=== PATIENT | female | born 1970 | race Caucasian/White ===

== ENCOUNTER → 2019-06-12 09:58 | Outpatient (BNVA) | payer MEDICAID, SELFPAY | PROVIDERS: Family Provider Nurse Practitioner Family; PCP Nurse Practitioner Family; Visit Provider Family Medicine | DX: M79.672 Pain in left foot (principal) | CPT/HCPCS: 73630 ==

== ENCOUNTER 2019-08-05 08:00 | Day surgery (SDC) | payer MEDICAID, SELFPAY | END 2019-08-05 09:00 | disposition home or self-care (01) | LOC: OR 11-19 10:20 | PROVIDERS: PCP Family Medicine; Visit Provider Surgery | DX: Z01.818 Encounter for other preprocedural examination (principal); M67.472 Ganglion, left ankle and foot ==

== ENCOUNTER 2019-08-17 05:54 | Day surgery (SDC) | payer MEDICAID, SELFPAY ==
[2019-08-17 06:00] VITALS: BP 155/71; PULSE 83; RESP 18; TEMP 36.2; O2SAT 94
[2019-08-17] MEDS: sodium chloride 0.9% 1,000 ML 30 ML IV (06:15)
--- NOTE | 2019-08-17 06:18 | ANES.PREANE2 ---
Pre-Anesthetic Assessment Pre-Anesthetic Assessment: Height/Weight: Height 1.7 m Weight 83.007 kg Temp Pulse Resp BP Pulse Ox 97.2 F L 83 18 155/71 94 08/17/19 06:00 08/17/19 06:00 08/17/19 06:00 08/17/19 06:00 08/17/19 06:00 Preop Diagnosis: Cyst left foot Proposed Procedure: Operation Date: 08/17/19 07:00 Proposed Procedures p Excision of cyst of left foot 06057 M67.472(Left) - Corbin Damon MD Familial anesthetic complications: None Was Beta Krystal taken within 24 hours: N/A Last intake: Intake Last Liquid Date 08/16/19 Last Liquid Time 23:20 Last Solid Date 08/16/19 Last Solid Time 12:00 Social: Social History: Tobacco Packs per day: 1 ppd Exam: Pre-Anes Outpt Exam: alert, oriented x 3, clear to auscultation bilaterally and regular rate & rhythm Additional Exam Findings (including area of procedure): coarse breaths ounds b/l Airway: Cervical ROM: WNL MP: 3 Additional comments: edentulous Pulmonary: Pulmonary: COPD, Cough (chronic) and SOB CV/HEM: CV/HEM: None reported : : None reported Hepatic: Hepatic: None reported GI: GI: None reported Metabolic: Metabolic: None reported Musc/skel: Musc/skel: None reported Neuropsych: Neuropsych: None reported Anesthetic Plan: ASA status: 2 Anesthesia: MAC Risk of > 500 ml blood loss (7ml/kg in children): No Meds/Allergies Current Medications: Current Medications Generic Name Dose Route Start Last Admin Trade Name Freq PRN Reason Stop Dose Admin Sodium Chloride 1,000 mls @ 30 ml s/hr 08/17/19 06:00 08/17/19 06:15 Sodium Chloride 0.9% IV 08/18/19 05:59 30 mls/hr .Q24H ALEJANDRO Administration PFSH Anesthesia PFSH: Medical History COPD (chronic obstructive pulmonary disease) GERD (gastroesophageal reflux disease) Hx of anorexia nervosa Surgical History History of incision and drainage several I&Ds due to abscess per patient Hx of dilation and curettage Family History Mother Diabetes Sister Diabetes Denies family history of Clotting disorder Suicide Cancer Hypertension Stroke Social History Smoking and tobacco status: current every day smoker Alcohol intake: current Alcohol intake frequency: 0-2 Drinks per Day Adopted: No Household members: spouse Housing: Manufactured/Mobile home Marital status: Number of children: 2 Number of grandchildren: 1 Highest education level completed: 10th Grade service: No Current occupational status: disabled Pets and animals: Yes History of recent travel: No Current gender identity: Female Data Anesthesia Cardiac Studies: No Data to Display
--- NOTE | 2019-08-17 06:26 | SUR.PREOP ---
Patient states that she has not had a period in years.
--- NOTE | 2019-08-17 06:53 | W.PM.OPSFHP ---
Same Day Surgery H&P Indication for Procedure/HPI DATE OF PROCEDURE: August 17, 2019 CHIEF COMPLAINT/INDICATIONFOR SURGICAL PROCEDURE: left foot cyst PREOP DIAGNOSIS: Cyst left foot PLANNED PROCEDRUE: Operation Date: 08/17/19 07:00 Proposed Procedures p Excision of cyst of left foot 01237 M67.472(Left) - Corbin Damon MD Medications/Allergies* Home Medications Medication Instructions Recorded Confirmed Type [id number] 250 1 tab PO Q6H PRN 07/15/19 08/17/19 History mg-250 mg-65 mg tablet Allergies/Adverse Reactions Allergy/AdvReac Type Severity Reaction Status Date / Time Penicillins Allergy Unknown Unknown Verified 07/15/19 09:20 propoxyphene [From Darvon] Allergy Unknown ALGY-Rash Verified 07/15/19 09:20 Tetracyclines Allergy Unknown ALGY-Rash Verified 07/15/19 09:20 tramadol [From Ultram] Allergy Unknown ALGY-Rash Verified 07/15/19 09:20 hydrocodone AdvReac Unknown ADR-Gastrointestinal Verified 07/15/19 09:20 Upset Current Medications: Generic Name Dose Route Start Last Admin Trade Name Freq PRN Reason Stop Dose Admin Sodium Chloride 1,000 mls @ 30 mls/hr 08/17/19 06:00 08/17/19 06:15 Sodium Chloride 0.9% IV 08/18/19 05:59 30 mls/hr .Q24H ALEJANDRO Administration Pertinent History/Comorbid Conditions* Medical History (Updated 06/12/19 @ 09:42 by Sandi Morrison MD) COPD (chronic obstructive pulmonary disease) GERD (gastroesophageal reflux disease) Hx of anorexia nervosa Surgical History (Updated 07/15/19 @ 10:06 by Corbin Damon MD) History of incision and drainage several I&Ds due to abscess per patient Hx of dilation and curettage Family History (Updated 06/12/19 @ 09:21 by Idania Wade LPN) Diabetes Mother Sister Denies family history of Clotting disorder Suicide Cancer Hypertension Stroke Social History Smoking and tobacco status: current every day smoker Alcohol intake: current Alcohol intake frequency: 0-2 Drinks per Day Adopted: No Household members: spouse Housing: Manufactured/Mobile home Marital status: Number of children: 2 Number of grandchildren: 1 Highest education level completed: 10th Grade service: No Current occupational status: disabled Pets and animals: Yes History of recent travel: No Current gender identity: Female Pertinent Exam Findings alert, oriented x 3 and regular rate & rhythm Recommendations Surgery/Procedure today Coding Level of Care Code Acute [employer] Librarian for Evelyn Rabago
[2019-08-17] MEDS: clindamycin 600 MG/50 ML PREMIX 100 MG IV (06:54)
[2019-08-17] MEDS: lidocaine 1% INJ 20 mL INTRAVESIC (07:25)
--- NOTE | 2019-08-17 07:35 | P.OP_ITS ---
Operative Report Date of procedure: August 17, 2019 Pre-op Diagnosis: Cyst left foot Post-op diagnosis: same Post-op Diagnosis: 2.5 x 2.5 cm cyst left foot Procedure Done: Excision of subcutaneous mass left foot Specimens removed/disposition: Cyst left foot Surgeon: Corbin Damon Anesthesia: MAC Estimated blood loss (mL): 5 Condition: stable Disposition: PACU Procedure: The patient was taken to the operating room and placed under MAC after IV antibiotic had been administered. The left foot was prepped and draped in a sterile manner. 1% lidocaine with 0.5% Marcaine was infiltrated around the cyst. Using a 15 blade a longitudinal 3 cm incision was made, subcutaneous tissue was divided and the cyst was dissected free from the surrounding subcutaneous tissue and underlying capsule using electrocautery. Wound was irrigated with saline, hemostasis ensured and subcutaneous tissues approximated using interrupted 3-0 Vicryl suture and skin was closed using running subcuti cular 4-0 Monocryl and surgical glue. Pressure dressings were applied. Patient was stable throughout the procedure.
[2019-08-17 07:39] VITALS: BP 137/82; PULSE 70; RESP 16; TEMP 36.6; O2SAT 98
[2019-08-17 07:49] VITALS: BP 126/73; PULSE 66; RESP 16; O2SAT 94
== END 2019-08-17 08:07 | disposition home or self-care (01) ==
PROVIDERS: PCP Family Medicine; Visit Provider Surgery
PROC: (CPT 11423; principal; 2019-08-17 07:00)
DX: L72.8 Other follicular cysts of the skin and subcutaneous tissue (principal); F17.210 Nicotine dependence, cigarettes, uncomplicated; J44.9 Chronic obstructive pulmonary disease, unspecified; K21.9 Gastro-esophageal reflux disease without esophagitis; Z83.3 Family history of diabetes mellitus; Z79.82 Long term (current) use of aspirin
CPT/HCPCS: 11423; 12041; 12345; 88304; J2001; J2250; J2270; J2405; J2704; J3490; J7030

== ENCOUNTER → 2019-10-08 11:22 | Outpatient (BNVA) | payer MEDICAID, SELFPAY | PROVIDERS: PCP Family Medicine; Visit Provider Nurse Practitioner Family | DX: T81.41XA Infection following a procedure, superficial incisional surgical site, initial encounter (principal); J44.9 Chronic obstructive pulmonary disease, unspecified; M79.671 Pain in right foot | CPT/HCPCS: 87070; 87077; 87184; 87186 ==

== ENCOUNTER → 2021-09-18 15:11 | Outpatient (BNVA) | payer MEDICAID, SELFPAY | PROVIDERS: PCP Family Medicine; Visit Provider Nurse Practitioner Family | DX: J44.9 Chronic obstructive pulmonary disease, unspecified (principal); L02.92 Furuncle, unspecified | CPT/HCPCS: 87070; 87077; 87184 ==

== ENCOUNTER → 2023-06-04 10:27 | Outpatient (BNVA) | payer MEDICAID, SELFPAY | PROVIDERS: PCP Family Medicine; Visit Provider Nurse Practitioner Family | DX: M79.89 Other specified soft tissue disorders (principal) | CPT/HCPCS: 80053; 80061; 83880; 84443; 85025 ==

== ENCOUNTER → 2023-06-18 10:57 | Outpatient (BNVA) | payer MEDICAID, SELFPAY | PROVIDERS: PCP Family Medicine; Visit Provider Nurse Practitioner Family | DX: R79.89 Other specified abnormal findings of blood chemistry (principal) | CPT/HCPCS: 84439; 84443; 84481 ==

== ENCOUNTER 2023-07-29 13:47 | Outpatient (CLI) | payer MEDICAID, SELFPAY ==
--- NOTE | 2023-07-29 14:30 | USCV_ITS ---
Roxi Jimenez Age: 53 Gender: F : 1970 Exam Date: 07/29/2023 14:15 Ordering Phys: Lizeth Marin-Janay Technologist: CT Exam Location: [facility] – [place] Indication: syncope BP: 140 / 66 HR: 79 Rhythm: Sinus Technical Quality: Adequate MEASUREMENTS (Male / Female) Normal Values 2D ECHO LV Diastolic Diameter PLAX 3.0 cm 4.2 - 5.9 / 3.9 - 5.3 cm IVS Diastolic Thickness 1.7 cm 0.6 - 1.0 / 0.6 - 0.9 cm IVS Systolic Thickness 2.0 cm LVPW Diastolic Thickness 1.5 cm 0.6 - 1.0 / 0.6 - 0.9 cm LVPW Systolic Thickness 1.9 cm LVOT Diameter 2.0 cm LV Ejection Fraction 2D Teich 50.7 % LV Ejection Fraction MOD 2C 53.8 % LV Ejection Fraction 2C AL 53.9 % LA Diameter 3.2 cm RA Systolic Volume 4C AL 34.6 ml RA Systolic Volume 4C MOD 33.2 ml Aorta at Sinotubular Diameter 2.8 cm DOPPLER AV Peak Velocity 362.0 cm/s MV Peak Velocity 88.0 cm/s MV Area PHT 2.5 cm squared Mitral E to A Ratio 0.8 TR Peak Velocity 233.0 cm/s TR Peak Gradient 21.7 mmHg TV Peak E Velocity 102.0 cm/s Right Atrial Pressure 3.0 mmHg Pulmonary Artery Systolic Pressu 24.7 mmHg FINDINGS Left Ventricle Technically limited quality echocardiogram because of poor ultrasonic windows. Left ventricle is normal size. LV systolic function is normal with EF 55 to 60%. No regional wall motion abnormalities are seen. Grade 1 diastolic dysfunction. Right Ventricle Normal in size and function Right Atrium Normal in size Left Atrium Normal in size Mitral Valve Structurally normal mitral valve. Trace mitral regurgitation. Aortic Valve Not well-visualized. Gradient across aortic valve/LVOT appears to be elevated however contamination with mitral regurgitation doppler signal is likely. Tricuspid Valve Pulmonary artery systolic pressure is normal. Trace tricuspid regurgitation. Pulmonic Valve Not well visualized Pericardium Normal Aorta Normal in size IVC Appears to be normal CONCLUSIONS Technically limited quality echocardiogram because of poor ultrasonic windows. Valves are not well-visualized. LV systolic function is normal. Trace mitral regurgitation. Aortic valve is not well-visualized. Gradient across valve/LVOT appears to be elevated however contamination with mitral regurgitation and Doppler signal is likely. Trace tricuspid regurgitation No comparison studies are available. Yuri Murillo MD (Electronically Signed) Final Date: 04 Aug 2023 14:16 S
== END 2023-07-29 13:48 | disposition home or self-care (01) ==
LOC: RAD 13:48
PROVIDERS: PCP Family Medicine; Visit Provider Nurse Practitioner Family
DX: M79.89 Other specified soft tissue disorders (principal); J44.9 Chronic obstructive pulmonary disease, unspecified; R06.02 Shortness of breath
CPT/HCPCS: 93306

== ENCOUNTER → 2023-08-05 10:48 | Outpatient (BNVA) | payer MEDICAID, SELFPAY | PROVIDERS: PCP Family Medicine; Visit Provider Podiatrist Foot & Ankle Surgery | DX: M79.89 Other specified soft tissue disorders (principal); L60.3 Nail dystrophy; B35.3 Tinea pedis | CPT/HCPCS: 99203 ==

== ENCOUNTER → 2023-08-29 10:59 | Outpatient (BNVA) | payer MEDICAID, SELFPAY | PROVIDERS: PCP Family Medicine; Visit Provider Podiatrist Foot & Ankle Surgery | DX: L60.3 Nail dystrophy (principal); M79.89 Other specified soft tissue disorders; S50.01XA Contusion of right elbow, initial encounter; W18.39XA Other fall on same level, initial encounter; Z98.890 Other specified postprocedural states; B35.3 Tinea pedis | CPT/HCPCS: 11750; 73070 ==

== ENCOUNTER → 2023-10-01 14:20 | Outpatient (BNVA) | payer MEDICAID, SELFPAY | PROVIDERS: PCP Family Medicine; Visit Provider Nurse Practitioner Family | DX: E78.5 Hyperlipidemia, unspecified (principal); J44.1 Chronic obstructive pulmonary disease with (acute) exacerbation; R79.89 Other specified abnormal findings of blood chemistry | CPT/HCPCS: 80053; 80061; 83721; 84443; 85025 ==

== ENCOUNTER → 2023-10-10 14:56 | Outpatient (BNVA) | payer MEDICAID, SELFPAY | PROVIDERS: PCP Family Medicine; Visit Provider Podiatrist Foot & Ankle Surgery | DX: L60.0 Ingrowing nail (principal) | CPT/HCPCS: 99213 ==

== ENCOUNTER → 2024-05-26 15:09 | Outpatient (BNVA) | payer MEDICAID, SELFPAY | PROVIDERS: Family Provider Nurse Practitioner Family; PCP Nurse Practitioner Family; Visit Provider Nurse Practitioner Family | DX: E03.9 Hypothyroidism, unspecified (principal) | CPT/HCPCS: 80053; 80061; 83036; 84439; 84443; 84481; 85025 ==

== ENCOUNTER → 2024-10-13 10:51 | Outpatient (BNVA) | payer MEDICAID, SELFPAY | PROVIDERS: Family Provider Nurse Practitioner Family; PCP Nurse Practitioner Family; Visit Provider Nurse Practitioner Family | DX: J44.9 Chronic obstructive pulmonary disease, unspecified (principal); E03.9 Hypothyroidism, unspecified; E78.5 Hyperlipidemia, unspecified; R22.31 Localized swelling, mass and lump, right upper limb | CPT/HCPCS: 73130; 80053; 80061; 83036; 84443; 85025 ==

== ENCOUNTER → 2024-10-27 08:04 | Outpatient (BNVA) | payer MEDICAID, SELFPAY | PROVIDERS: Family Provider Nurse Practitioner Family; PCP Nurse Practitioner Family; Visit Provider Physician Assistant | DX: M18.11 Unilateral primary osteoarthritis of first carpometacarpal joint, right hand (principal); R22.31 Localized swelling, mass and lump, right upper limb | CPT/HCPCS: 20600; 99203; J3301; J3490 ==

== ENCOUNTER → 2024-12-21 12:34 | Outpatient (BNVA) | payer MEDICAID, SELFPAY | PROVIDERS: Family Provider Nurse Practitioner Family; PCP Nurse Practitioner Family; Visit Provider Nurse Practitioner Family | DX: J44.9 Chronic obstructive pulmonary disease, unspecified (principal); E03.9 Hypothyroidism, unspecified; E78.5 Hyperlipidemia, unspecified | CPT/HCPCS: 80053; 80061; 83036; 84443; 85025 ==